=== PATIENT | female | born 1995 | race Caucasian/White ===

== ENCOUNTER 2021-05-09 19:45 | Emergency (ER) | payer OTHER ==
[2021-05-09 19:59] VITALS: BP 115/63; PULSE 72; TEMP 99; BMI 25.0
[2021-05-09] MEDS ORDERED: ONDANSETRON 4 MG/2 ML VIAL IVPUSH ONE (20:33)
[2021-05-09] MEDS ORDERED: SODIUM CHLORIDE 1,000 ML IV STA (20:37)
[2021-05-09] MEDS ORDERED: ONDANSETRON 4 MG/2 ML VIAL ONE (20:51)
[2021-05-09 20:54] LABS: BASO % 2.5 % (0-2.0); EOS % 0.9 % (0-4.5); HEMATOCRIT 40.4 % (32.4-45.2); HEMOGLOBIN 13.2 GM/dl (10.7-15.3); LYMPH % 30.5 % (8-40); MCH 27.8 pg (25.7-33.7); MCHC 32.6 g/dl (32.0-36.0); MEAN CELL VOLUME 85.5 fl (80-96); MEAN PLT VOLUME 8.8 fl (7.5-11.1); MONO % 9.7 % (3.8-10.2); NEUT % 56.4 % (42.8-82.8); PLATELET COUNT 253 10^3/uL (134-434); RBC 4.73 M/mm3 (3.60-5.2); RDW 14.3 % (11.6-15.6); WHITE BLOOD COUNT 7.9 K/mm3 (4.0-10.8)
[2021-05-09 21:11] LABS: ALBUMIN 4.9 g/dl (3.4-5.0); BILIRUBIN,TOTAL 1.1 mg/dl (0.2-1); CALCIUM 9.7 mg/dl (8.5-10); CREATININE 0.7 mg/dl (0.55-1.3); TOT PROT 8.2 g/dl (6.4-8.2)
[2021-05-09 21:29] LABS: HCG,QUALITATIVE URINE Negative
== END 2021-05-09 22:05 | disposition home or self-care (01) ==
LOC: FER 19:45
PROC: 3E033GC Introduction of Other Therapeutic Substance into Peripheral Vein, Percutaneous Approach (ICD-10-PCS; principal; 2021-05-09)
PROC: 3E0337Z Introduction of Electrolytic and Water Balance Substance into Peripheral Vein, Percutaneous Approach (ICD-10-PCS; 2021-05-09)
DX: K52.9 Noninfective gastroenteritis and colitis, unspecified (principal); R00.2 Palpitations
CPT/HCPCS: 36415; 80053; 81003; 84703; 85025; 99284-25